=== PATIENT | female | born 1940 | race Caucasian/White ===

== ENCOUNTER 2019-10-11 12:39 | Observation (INO) ==
[2019-10-11] MEDS ORDERED: ONDANSETRON 4 MG/2 ML VIAL IV ONE ×2 (13:20→17:49)
[2019-10-11 13:43] LABS: Basophils % 0.2 % (0.0-0.8); Eosinophils # 0.1 10*3/uL (0.0-0.87); Eosinophils % 0.4 % (0.00-10.9); Hematocrit 37.3 VOL% (35.7-47.0); Hemoglobin 11.5 GM/DL (12.0-16.0); Immature Granulocytes % 0.2 %; Immature Granulocytes Absolute 0.03 #; Lymphocytes # 1.7 10*3/uL (1.4-4.0); Lymphocytes % 13.4 % (21.3-54.2); Mean Corpuscular HGB Conc 30.8 GM/DL (32-36); Mean Corpuscular Volume 91.9 FL (87-102); Mean Platelet Volume 12.6 FL (9.6-12.0); Monocytes % 4.1 % (1.7-12.7); Neutrophils % 81.7 % (38.7-73.9); Platelet Count 222 T/CUMM (130-400); Red Blood Count 4.06 MC/CUMM (3.8-5.5); Red Cell Distribution Width 14.9 % (9.3-17.3); White Blood Count 12.5 T/CUMM (4-12)
[2019-10-11] MEDS: SODIUM CHLORIDE 0.9% 1,000 ML IV STA ×2 (13:45→17:55)
[2019-10-11 13:51] LABS: Albumin 3.1 G/DL (3.4-5.0); Bilirubin,Direct 0.11 MG/DL (0.0-0.20); Bilirubin,Indirect 0.3 MG/DL (0.0-1.0); Bilirubin,Total 0.4 MG/DL (0.2-1.0); Calcium 8.8 MG/DL (8.5-10.1); Osmolality,Calculated 273.4 MOS/KG (273-304); Total Protein 7.7 G/DL (6.4-8.3)
[2019-10-11 14:26] LABS: INR 2.2; PT Patient Result 22.4 SECS (9.8-11.9)
[2019-10-11] MEDS ORDERED: ALBUTEROL 2.5 MG/3 ML NEB RESP TX PRN (16:50)
[2019-10-11] MEDS ORDERED: LINACLOTIDE 145 MCG CAPSULE PO PRN (16:50)
[2019-10-11] MEDS ORDERED: DOCUSATE/SENNA 50-8.6 MG TABLET PO PRN (16:50)
[2019-10-11] MEDS ORDERED: DEXTROSE 50% 25 GM/50 ML VIAL IV PRN (17:02)
[2019-10-11] MEDS ORDERED: DEXTROSE 10% 250 ML BAG IV PRN (17:02)
[2019-10-11] MEDS ORDERED: GLUCAGON 1 MG VIAL IM PRN ×2 (17:02)
[2019-10-11] MEDS: APIXABAN 5 MG TABLET PO SCH (20:32)
[2019-10-11] MEDS: ESCITALOPRAM 10 MG TABLET PO SCH (20:32)
[2019-10-11] MEDS: METOPROLOL TARTRATE 25 MG TABLET PO SCH (20:32)
[2019-10-11] MEDS: BUDESONIDE/FORMOTEROL 160-4.5 INHALER 6 GM INH SCH (20:33)
[2019-10-11] MEDS: INSULIN LISPRO 100 UNIT/ML SUBCUT SCH (20:34)
[2019-10-11] MEDS: oxyCODONE/ACETAMINOPHEN 5-325 MG TABLET PO PRN (20:57)
[2019-10-12] MEDS: ONDANSETRON 4 MG/2 ML VIAL IV PRN ×2 (02:14→17:43)
[2019-10-12] MEDS: oxyCODONE/ACETAMINOPHEN 5-325 MG TABLET PO PRN (02:14)
[2019-10-12 06:18] LABS: Basophils % 0.3 % (0.0-0.8); Eosinophils # 0.1 10*3/uL (0.0-0.87); Eosinophils % 0.4 % (0.00-10.9); Hematocrit 36.5 VOL% (35.7-47.0); Immature Granulocytes % 0.4 %; Immature Granulocytes Absolute 0.06 #; Lymphocytes # 2.1 10*3/uL (1.4-4.0); Mean Corpuscular HGB Conc 30.1 GM/DL (32-36); Mean Corpuscular Volume 94.3 FL (87-102); Mean Platelet Volume 11.9 FL (9.6-12.0); Monocytes % 4.8 % (1.7-12.7); Neutrophils % 79.1 % (38.7-73.9); Platelet Count 211 T/CUMM (130-400); Red Blood Count 3.87 MC/CUMM (3.8-5.5); Red Cell Distribution Width 14.9 % (9.3-17.3)
[2019-10-12 06:33] LABS: INR 1.4; PT Patient Result 14.7 SECS (9.8-11.9)
[2019-10-12 06:38] LABS: Osmolality,Calculated 275.2 MOS/KG (273-304); Risk Ratio 2.89; Thyroid Stimulating Hormone 1.67 uIU/ml (0.358-3.74); VLDL CHOLESTEROL 36.2 MG/DL
[2019-10-12 07:35] LABS: Hypochromasia 1+; Microcytosis Slight
[2019-10-12 07:36] LABS: Platelet Estimate Normal
[2019-10-12] MEDS: LEVOTHYROXINE 75 MCG TABLET PO SCH (07:59)
[2019-10-12] MEDS: INSULIN LISPRO 100 UNIT/ML SUBCUT SCH ×4 (09:06→20:38)
[2019-10-12] MEDS: MAGNESIUM OXIDE 400 MG TABLET PO SCH (09:06)
[2019-10-12] MEDS: POTASSIUM CHLORIDE 20 MEQ/15 ML UDCUP PO SCH (09:06)
[2019-10-12] MEDS: METOPROLOL TARTRATE 25 MG TABLET PO SCH ×2 (09:09→20:37)
[2019-10-12] MEDS: BUDESONIDE/FORMOTEROL 160-4.5 INHALER 6 GM INH SCH ×2 (09:09→20:38)
[2019-10-12] MEDS: predniSONE 10 MG TABLET PO SCH (09:09)
[2019-10-12] MEDS: APIXABAN 5 MG TABLET PO SCH ×2 (10:18→20:37)
[2019-10-12 12:33] LABS: Apearance,Urine Slightly Hazy (Clear); Bacteria,Urine Occasional /HPF (Few); Bilirubin,Urine Negative (Negative); Blood, Urine Large mg/dL (Negative); Glucose,Urine (UA) Negative (Negative); Hyaline Casts,Urine 2 /LPF (0-3); Ketones,Urine Negative (Negative); Mucus,Urine Occasional /LPF (Occasional); Nitrite,Urine Negative (Negative); Protein,Urine 100 MG/DL; RBC,Urine 230 /HPF (0-4); Squamous Epithelial Cell,Urine Occasional /HPF (0-10); Urine Urobilinogen < 2.0 EU/DL (0.2-1.0); WBC,Urine 49 /HPF (0-6)
[2019-10-12 12:37] LABS: Urine Color Yellow (Yellow)
[2019-10-12] MEDS: cephALEXin 500 MG CAPSULE PO SCH ×2 (16:04→20:38)
[2019-10-12] MEDS: LEVOFLOXACIN 500 MG TABLET PO SCH (17:45)
[2019-10-12] MEDS: ESCITALOPRAM 10 MG TABLET PO SCH (20:37)
[2019-10-13] MEDS: oxyCODONE/ACETAMINOPHEN 5-325 MG TABLET PO PRN (00:42)
[2019-10-13] MEDS: LEVOTHYROXINE 75 MCG TABLET PO SCH (05:58)
[2019-10-13 06:36] LABS: Basophils % 0.1 % (0.0-0.8); Eosinophils % 0.2 % (0.00-10.9); Hematocrit 36.7 VOL% (35.7-47.0); Hemoglobin 11.1 GM/DL (12.0-16.0); Immature Granulocytes % 0.4 %; Immature Granulocytes Absolute 0.05 #; Lymphocytes # 2.3 10*3/uL (1.4-4.0); Lymphocytes % 16.8 % (21.3-54.2); Mean Corpuscular HGB Conc 30.2 GM/DL (32-36); Mean Corpuscular Volume 95.1 FL (87-102); Mean Platelet Volume 12.2 FL (9.6-12.0); Monocytes % 5.1 % (1.7-12.7); Neutrophils % 77.4 % (38.7-73.9); Platelet Count 200 T/CUMM (130-400); Red Blood Count 3.86 MC/CUMM (3.8-5.5); Red Cell Distribution Width 14.7 % (9.3-17.3); White Blood Count 13.7 T/CUMM (4-12)
[2019-10-13 06:59] LABS: Calcium 9.2 MG/DL (8.5-10.1); Osmolality,Calculated 278.2 MOS/KG (273-304)
[2019-10-13] MEDS: BUDESONIDE/FORMOTEROL 160-4.5 INHALER 6 GM INH SCH ×2 (08:41→20:28)
[2019-10-13] MEDS: INSULIN LISPRO 100 UNIT/ML SUBCUT SCH ×4 (08:43→20:28)
[2019-10-13] MEDS: POTASSIUM CHLORIDE 20 MEQ/15 ML UDCUP PO SCH (08:45)
[2019-10-13] MEDS: METOPROLOL TARTRATE 25 MG TABLET PO SCH ×2 (08:46→20:29)
[2019-10-13] MEDS: predniSONE 10 MG TABLET PO SCH (08:46)
[2019-10-13] MEDS: APIXABAN 5 MG TABLET PO SCH (08:47)
[2019-10-13] MEDS: cephALEXin 500 MG CAPSULE PO SCH ×4 (08:47→20:29)
[2019-10-13] MEDS: MAGNESIUM OXIDE 400 MG TABLET PO SCH (08:47)
[2019-10-13] MEDS: LEVOFLOXACIN 500 MG TABLET PO SCH (17:34)
[2019-10-13] MEDS: ESCITALOPRAM 10 MG TABLET PO SCH (20:29)
[2019-10-13] MEDS: ROSUVASTATIN 10 MG TABLET PO SCH (20:29)
[2019-10-14] MEDS: oxyCODONE/ACETAMINOPHEN 5-325 MG TABLET PO PRN ×2 (02:37→14:32)
[2019-10-14 04:42] LABS: Basophils % 0.3 % (0.0-0.8); Eosinophils % 0.2 % (0.00-10.9); Hematocrit 37.8 VOL% (35.7-47.0); Hemoglobin 11.4 GM/DL (12.0-16.0); Immature Granulocytes % 0.7 %; Lymphocytes # 2.3 10*3/uL (1.4-4.0); Lymphocytes % 16.8 % (21.3-54.2); Mean Corpuscular HGB Conc 30.2 GM/DL (32-36); Mean Corpuscular Volume 94.5 FL (87-102); Mean Platelet Volume 13.3 FL (9.6-12.0); Monocytes % 5.8 % (1.7-12.7); Neutrophils % 76.2 % (38.7-73.9); Platelet Count 179 T/CUMM (130-400); Red Cell Distribution Width 14.7 % (9.3-17.3); White Blood Count 13.7 T/CUMM (4-12)
[2019-10-14 04:57] LABS: Albumin 3.1 G/DL (3.4-5.0); Bilirubin,Total 0.6 MG/DL (0.2-1.0); Calcium 9.2 MG/DL (8.5-10.1); Osmolality,Calculated 279.4 MOS/KG (273-304); Total Protein 7.3 G/DL (6.4-8.3)
[2019-10-14 04:58] LABS: Hypochromasia 1+; Microcytosis Slight
[2019-10-14 04:59] LABS: Ovalocytes Slight; Platelet Estimate Adequate
[2019-10-14] MEDS: LEVOTHYROXINE 75 MCG TABLET PO SCH (06:30)
[2019-10-14] MEDS: BUDESONIDE/FORMOTEROL 160-4.5 INHALER 6 GM INH SCH ×2 (09:16→20:52)
[2019-10-14] MEDS: INSULIN LISPRO 100 UNIT/ML SUBCUT SCH ×4 (09:17→20:52)
[2019-10-14] MEDS: MAGNESIUM OXIDE 400 MG TABLET PO SCH (09:26)
[2019-10-14] MEDS: cephALEXin 500 MG CAPSULE PO SCH ×3 (09:28→20:51)
[2019-10-14] MEDS: METOPROLOL TARTRATE 25 MG TABLET PO SCH ×2 (09:30→20:51)
[2019-10-14] MEDS: lisinopriL 10 MG TABLET PO SCH (09:30)
[2019-10-14] MEDS: predniSONE 10 MG TABLET PO SCH (09:30)
[2019-10-14] MEDS: ASPIRIN EC 81 MG TABLET PO SCH ×2 (09:30→11:25)
[2019-10-14] MEDS: POTASSIUM CHLORIDE 20 MEQ/15 ML UDCUP PO SCH (09:35)
[2019-10-14] MEDS ORDERED: ENOXAPARIN 100 MG/ML SYRINGE SUBCUT ONE (10:57)
[2019-10-14] MEDS ORDERED: ENOXAPARIN 100 MG/ML SYRINGE SUBCUT SCH (11:00)
[2019-10-14 15:00] LABS: INR 1.2
[2019-10-14] MEDS: LEVALBUTEROL 0.63 MG/3 ML NEB RESP TX SCH (15:23)
[2019-10-14] MEDS: LEVOFLOXACIN 500 MG TABLET PO SCH (16:31)
[2019-10-14] MEDS ORDERED: WARFARIN 5 MG TABLET PO SCH (18:00)
[2019-10-14] MEDS: ESCITALOPRAM 10 MG TABLET PO SCH (20:51)
[2019-10-14] MEDS: ROSUVASTATIN 10 MG TABLET PO SCH (20:51)
[2019-10-14] MEDS: DESITIN 4OZ/NYSTATIN 15 GRAM MIXTURE PASTE TOP SCH (20:52)
[2019-10-15] MEDS: LEVALBUTEROL 0.63 MG/3 ML NEB RESP TX SCH ×4 (01:04→19:27)
[2019-10-15 04:16] LABS: Basophils % 0.2 % (0.0-0.8); Eosinophils # 0.1 10*3/uL (0.0-0.87); Eosinophils % 0.6 % (0.00-10.9); Hematocrit 35.5 VOL% (35.7-47.0); Hemoglobin 10.5 GM/DL (12.0-16.0); Immature Granulocytes % 0.9 %; Immature Granulocytes Absolute 0.09 #; Lymphocytes # 2.5 10*3/uL (1.4-4.0); Lymphocytes % 24.8 % (21.3-54.2); Mean Corpuscular HGB Conc 29.6 GM/DL (32-36); Mean Corpuscular Volume 97.8 FL (87-102); Mean Platelet Volume 12.1 FL (9.6-12.0); Monocytes % 6.7 % (1.7-12.7); NRBC # 0.02 10*3/uL; Neutrophils % 66.8 % (38.7-73.9); Platelet Count 198 T/CUMM (130-400); Red Blood Count 3.63 MC/CUMM (3.8-5.5); Red Cell Distribution Width 14.8 % (9.3-17.3); White Blood Count 10.1 T/CUMM (4-12)
[2019-10-15 04:39] LABS: Albumin 2.8 G/DL (3.4-5.0); Bilirubin,Total 1.2 MG/DL (0.2-1.0); Calcium 8.9 MG/DL (8.5-10.1); Total Protein 7.1 G/DL (6.4-8.3)
[2019-10-15 04:53] LABS: INR 1.1
[2019-10-15] MEDS: LEVOTHYROXINE 75 MCG TABLET PO SCH (06:14)
[2019-10-15] MEDS: INSULIN LISPRO 100 UNIT/ML SUBCUT SCH ×4 (08:08→22:15)
[2019-10-15] MEDS: lisinopriL 10 MG TABLET PO SCH (09:07)
[2019-10-15] MEDS: METOPROLOL TARTRATE 25 MG TABLET PO SCH ×2 (09:07→22:13)
[2019-10-15] MEDS: cephALEXin 500 MG CAPSULE PO SCH ×3 (09:07→22:13)
[2019-10-15] MEDS: DESITIN 4OZ/NYSTATIN 15 GRAM MIXTURE PASTE TOP SCH ×2 (09:08→22:14)
[2019-10-15] MEDS: MAGNESIUM OXIDE 400 MG TABLET PO SCH (09:08)
[2019-10-15] MEDS: POTASSIUM CHLORIDE 20 MEQ/15 ML UDCUP PO SCH (09:08)
[2019-10-15] MEDS: predniSONE 10 MG TABLET PO SCH (09:08)
[2019-10-15] MEDS: ASPIRIN EC 81 MG TABLET PO SCH (09:08)
[2019-10-15] MEDS: BUDESONIDE/FORMOTEROL 160-4.5 INHALER 6 GM INH SCH ×2 (09:08→22:15)
[2019-10-15] MEDS: oxyCODONE/ACETAMINOPHEN 5-325 MG TABLET PO PRN (15:59)
[2019-10-15] MEDS: LEVOFLOXACIN 500 MG TABLET PO SCH (17:53)
[2019-10-15] MEDS ORDERED: SERTRALINE 25 MG TABLET PO SCH (21:00)
[2019-10-15] MEDS: ROSUVASTATIN 10 MG TABLET PO SCH (22:13)
[2019-10-16] MEDS: LEVALBUTEROL 0.63 MG/3 ML NEB RESP TX SCH ×4 (00:13→19:15)
[2019-10-16 04:56] LABS: INR 1.1; PT Patient Result 11.5 SECS (9.8-11.9)
[2019-10-16 04:58] LABS: Basophils % 0.1 % (0.0-0.8); Eosinophils # 0.1 10*3/uL (0.0-0.87); Eosinophils % 1.4 % (0.00-10.9); Hemoglobin 10.7 GM/DL (12.0-16.0); Immature Granulocytes % 0.5 %; Immature Granulocytes Absolute 0.05 #; Lymphocytes # 2.5 10*3/uL (1.4-4.0); Mean Corpuscular HGB Conc 30.6 GM/DL (32-36); Mean Corpuscular Volume 96.4 FL (87-102); Mean Platelet Volume 13.1 FL (9.6-12.0); NRBC # 0.03 10*3/uL; Platelet Count 178 T/CUMM (130-400); Red Blood Count 3.63 MC/CUMM (3.8-5.5); Red Cell Distribution Width 14.8 % (9.3-17.3); White Blood Count 9.9 T/CUMM (4-12)
[2019-10-16 05:05] LABS: Albumin 2.8 G/DL (3.4-5.0); Bilirubin,Total 0.5 MG/DL (0.2-1.0); Calcium 8.9 MG/DL (8.5-10.1); Osmolality,Calculated 278.2 MOS/KG (273-304); Total Protein 6.9 G/DL (6.4-8.3)
[2019-10-16] MEDS: LEVOTHYROXINE 75 MCG TABLET PO SCH (05:51)
[2019-10-16] MEDS: INSULIN LISPRO 100 UNIT/ML SUBCUT SCH ×4 (08:51→22:11)
[2019-10-16] MEDS: cephALEXin 500 MG CAPSULE PO SCH ×3 (09:17→21:03)
[2019-10-16] MEDS: POTASSIUM CHLORIDE 20 MEQ/15 ML UDCUP PO SCH (09:17)
[2019-10-16] MEDS: ASPIRIN EC 81 MG TABLET PO SCH (09:17)
[2019-10-16] MEDS: METOPROLOL TARTRATE 25 MG TABLET PO SCH ×2 (09:17→21:04)
[2019-10-16] MEDS: MAGNESIUM OXIDE 400 MG TABLET PO SCH (09:17)
[2019-10-16] MEDS: BUDESONIDE/FORMOTEROL 160-4.5 INHALER 6 GM INH SCH ×2 (09:18→21:04)
[2019-10-16] MEDS: DESITIN 4OZ/NYSTATIN 15 GRAM MIXTURE PASTE TOP SCH ×2 (09:18→21:03)
[2019-10-16] MEDS: predniSONE 10 MG TABLET PO SCH (09:18)
[2019-10-16] MEDS: ONDANSETRON 4 MG/2 ML VIAL IV PRN (09:19)
[2019-10-16] MEDS ORDERED: FLUCONAZOLE INJ 200 MG in PREMIX 1 EACH IV ONE (12:02)
[2019-10-16] MEDS: TORSEMIDE 20 MG TABLET PO SCH (14:59)
[2019-10-16] MEDS: oxyCODONE/ACETAMINOPHEN 5-325 MG TABLET PO PRN (16:16)
[2019-10-16] MEDS: CLORAZEPATE 3.75 MG TABLET PO PRN (21:02)
[2019-10-16] MEDS: ROSUVASTATIN 10 MG TABLET PO SCH (21:02)
[2019-10-16] MEDS: SERTRALINE 25 MG TABLET PO SCH (21:03)
[2019-10-17] MEDS: LEVALBUTEROL 0.63 MG/3 ML NEB RESP TX SCH ×4 (00:16→20:19)
[2019-10-17 05:31] LABS: Basophils % 0.2 % (0.0-0.8); Eosinophils # 0.2 10*3/uL (0.0-0.87); Eosinophils % 2.1 % (0.00-10.9); Hematocrit 37.6 VOL% (35.7-47.0); Hemoglobin 11.4 GM/DL (12.0-16.0); Immature Granulocytes % 0.3 %; Immature Granulocytes Absolute 0.03 #; Lymphocytes # 2.6 10*3/uL (1.4-4.0); Lymphocytes % 25.6 % (21.3-54.2); Mean Corpuscular HGB Conc 30.3 GM/DL (32-36); Mean Corpuscular Volume 95.2 FL (87-102); Mean Platelet Volume 11.9 FL (9.6-12.0); Neutrophils % 65.8 % (38.7-73.9); Platelet Count 198 T/CUMM (130-400); Red Blood Count 3.95 MC/CUMM (3.8-5.5); Red Cell Distribution Width 15.1 % (9.3-17.3); White Blood Count 10.3 T/CUMM (4-12)
[2019-10-17 05:39] LABS: INR 1.1; PT Patient Result 11.9 SECS (9.8-11.9)
[2019-10-17 05:44] LABS: Albumin 2.9 G/DL (3.4-5.0); Bilirubin,Total 0.4 MG/DL (0.2-1.0); Calcium 8.8 MG/DL (8.5-10.1); Osmolality,Calculated 279.1 MOS/KG (273-304); Total Protein 7.1 G/DL (6.4-8.3)
[2019-10-17] MEDS: LEVOTHYROXINE 75 MCG TABLET PO SCH (05:45)
[2019-10-17 05:53] LABS: Calcium 8.9 MG/DL (8.5-10.1); Osmolality,Calculated 284.7 MOS/KG (273-304)
[2019-10-17] MEDS: INSULIN LISPRO 100 UNIT/ML SUBCUT SCH ×4 (08:45→20:31)
[2019-10-17] MEDS ORDERED: propofoL 200 MG/20 ML VIAL IV ONE (09:00)
[2019-10-17] MEDS ORDERED: LIDOCAINE 2% 5 ML VIAL ONE (09:00)
[2019-10-17] MEDS ORDERED: PHENYLEPHRINE 1 MG/10 ML SYRINGE IV ONE (09:00)
[2019-10-17] MEDS ORDERED: ETOMIDATE 20 MG/10 ML VIAL IV ONE (09:00)
[2019-10-17] MEDS: LACTATED RINGERS 1,000 ML IV SCH (09:27)
[2019-10-17] MEDS: MAGNESIUM OXIDE 400 MG TABLET PO SCH ×2 (09:28→13:26)
[2019-10-17] MEDS: ASPIRIN EC 81 MG TABLET PO SCH (09:28)
[2019-10-17] MEDS: TORSEMIDE 20 MG TABLET PO SCH ×2 (09:28→13:26)
[2019-10-17] MEDS: BUDESONIDE/FORMOTEROL 160-4.5 INHALER 6 GM INH SCH ×2 (09:28→20:33)
[2019-10-17] MEDS: predniSONE 10 MG TABLET PO SCH ×2 (09:28→13:27)
[2019-10-17] MEDS: METOPROLOL TARTRATE 25 MG TABLET PO SCH ×2 (09:28→13:27)
[2019-10-17] MEDS: DESITIN 4OZ/NYSTATIN 15 GRAM MIXTURE PASTE TOP SCH ×2 (09:28→20:33)
[2019-10-17] MEDS: cephALEXin 500 MG CAPSULE PO SCH ×3 (09:28→20:31)
[2019-10-17] MEDS ORDERED: MIDAZOLAM 2 MG/2 ML VIAL ONE (11:52)
[2019-10-17] MEDS: FLUCONAZOLE INJ 100 MG in IV BAG 1 EACH IV SCH (13:27)
[2019-10-17] MEDS: CLORAZEPATE 3.75 MG TABLET PO PRN (17:15)
[2019-10-17] MEDS: SERTRALINE 25 MG TABLET PO SCH (20:31)
[2019-10-17] MEDS: ROSUVASTATIN 10 MG TABLET PO SCH (20:31)
[2019-10-17] MEDS: carvediloL 6.25 MG TABLET PO SCH (20:32)
[2019-10-17] MEDS: oxyCODONE/ACETAMINOPHEN 5-325 MG TABLET PO PRN (20:32)
[2019-10-18] MEDS: LEVOTHYROXINE 75 MCG TABLET PO SCH (05:40)
[2019-10-18 06:13] LABS: Basophils % 0.2 % (0.0-0.8); Eosinophils # 0.1 10*3/uL (0.0-0.87); Eosinophils % 0.9 % (0.00-10.9); Hematocrit 39.4 VOL% (35.7-47.0); Hemoglobin 11.8 GM/DL (12.0-16.0); Immature Granulocytes % 0.4 %; Immature Granulocytes Absolute 0.05 #; Lymphocytes # 2.2 10*3/uL (1.4-4.0); Lymphocytes % 18.4 % (21.3-54.2); Mean Corpuscular HGB Conc 29.9 GM/DL (32-36); Mean Corpuscular Volume 94.9 FL (87-102); Mean Platelet Volume 12.1 FL (9.6-12.0); Monocytes % 4.7 % (1.7-12.7); Neutrophils % 75.4 % (38.7-73.9); Platelet Count 230 T/CUMM (130-400); Red Blood Count 4.15 MC/CUMM (3.8-5.5); Red Cell Distribution Width 15.4 % (9.3-17.3)
[2019-10-18 06:31] LABS: Calcium 9.1 MG/DL (8.5-10.1); Osmolality,Calculated 277.2 MOS/KG (273-304)
[2019-10-18] MEDS: LEVALBUTEROL 0.63 MG/3 ML NEB RESP TX SCH ×3 (06:46→21:06)
[2019-10-18] MEDS: carvediloL 6.25 MG TABLET PO SCH ×2 (09:25→17:33)
[2019-10-18] MEDS: cephALEXin 500 MG CAPSULE PO SCH ×3 (09:25→21:44)
[2019-10-18] MEDS: TORSEMIDE 20 MG TABLET PO SCH (09:25)
[2019-10-18] MEDS: LACTATED RINGERS 1,000 ML IV SCH (09:26)
[2019-10-18] MEDS: lisinopriL 2.5 MG TABLET PO SCH (09:26)
[2019-10-18] MEDS: predniSONE 10 MG TABLET PO SCH (09:26)
[2019-10-18] MEDS: MAGNESIUM OXIDE 400 MG TABLET PO SCH (09:26)
[2019-10-18] MEDS: ASPIRIN EC 81 MG TABLET PO SCH (09:26)
[2019-10-18] MEDS: BUDESONIDE/FORMOTEROL 160-4.5 INHALER 6 GM INH SCH ×2 (09:27→21:56)
[2019-10-18] MEDS: DESITIN 4OZ/NYSTATIN 15 GRAM MIXTURE PASTE TOP SCH ×2 (09:27→21:54)
[2019-10-18] MEDS: INSULIN LISPRO 100 UNIT/ML SUBCUT SCH ×4 (09:27→21:31)
[2019-10-18 10:49] LABS: ABG Base Excess 11.3 MMOL/L (-2.5-2.5); ABG Oxygen Saturation 97.2 % (95-100); ABG PCO2 63.5 MM HG (35-48); ABG PH 7.396 (7.35-7.45); ABG PO2 91.3 MM HG (80-95); ABG TCO2 34.5 MMOL/L (23-27)
[2019-10-18] MEDS: FLUCONAZOLE INJ 100 MG in IV BAG 1 EACH IV SCH (12:35)
[2019-10-18 18:16] LABS: ABG Base Excess 13.5 MMOL/L (-2.5-2.5); ABG HCO3 38.6 MMOL/L (20-26); ABG Oxygen Saturation 89.3 % (95-100); ABG PCO2 50.7 MM HG (35-48); ABG PO2 55.1 MM HG (80-95); ABG TCO2 40.2 MMOL/L (23-27)
[2019-10-18 21:27] LABS: ABG HCO3 37.9 MMOL/L (20-26); ABG Oxygen Saturation 96.7 % (95-100); ABG PCO2 54.7 MM HG (35-48); ABG PH 7.476 (7.35-7.45); ABG PO2 82.7 MM HG (80-95); ABG TCO2 35.2 MMOL/L (23-27)
[2019-10-18] MEDS: oxyCODONE/ACETAMINOPHEN 5-325 MG TABLET PO PRN (21:43)
[2019-10-18] MEDS: ROSUVASTATIN 10 MG TABLET PO SCH (21:44)
[2019-10-18] MEDS: SERTRALINE 25 MG TABLET PO SCH (21:44)
[2019-10-18] MEDS: NYSTATIN 500,000 UNIT/5 ML UDCUP SWISH/SWAL SCH (21:54)
[2019-10-19] MEDS: LEVALBUTEROL 0.63 MG/3 ML NEB RESP TX SCH ×4 (00:56→19:58)
[2019-10-19 03:49] LABS: Basophils % 0.2 % (0.0-0.8); Eosinophils # 0.2 10*3/uL (0.0-0.87); Eosinophils % 1.3 % (0.00-10.9); Hematocrit 39.4 VOL% (35.7-47.0); Hemoglobin 12.1 GM/DL (12.0-16.0); Immature Granulocytes % 0.6 %; Immature Granulocytes Absolute 0.07 #; Lymphocytes # 2.4 10*3/uL (1.4-4.0); Mean Corpuscular HGB Conc 30.7 GM/DL (32-36); Mean Corpuscular Volume 94.5 FL (87-102); Mean Platelet Volume 11.6 FL (9.6-12.0); Monocytes % 5.7 % (1.7-12.7); Neutrophils % 72.2 % (38.7-73.9); Platelet Count 230 T/CUMM (130-400); Red Blood Count 4.17 MC/CUMM (3.8-5.5); Red Cell Distribution Width 15.5 % (9.3-17.3)
[2019-10-19 04:24] LABS: Calcium 9.1 MG/DL (8.5-10.1); Osmolality,Calculated 281.2 MOS/KG (273-304)
[2019-10-19] MEDS: LEVOTHYROXINE 75 MCG TABLET PO SCH (05:39)
[2019-10-19] MEDS: cephALEXin 500 MG CAPSULE PO SCH ×3 (08:27→20:36)
[2019-10-19] MEDS: carvediloL 6.25 MG TABLET PO SCH ×2 (08:28→16:48)
[2019-10-19] MEDS: lisinopriL 2.5 MG TABLET PO SCH (08:28)
[2019-10-19] MEDS: ASPIRIN EC 81 MG TABLET PO SCH (08:28)
[2019-10-19] MEDS: TORSEMIDE 20 MG TABLET PO SCH (08:28)
[2019-10-19] MEDS: predniSONE 10 MG TABLET PO SCH (08:29)
[2019-10-19] MEDS: MAGNESIUM OXIDE 400 MG TABLET PO SCH (08:29)
[2019-10-19] MEDS: BUDESONIDE/FORMOTEROL 160-4.5 INHALER 6 GM INH SCH ×2 (08:30→20:34)
[2019-10-19] MEDS: INSULIN LISPRO 100 UNIT/ML SUBCUT SCH ×4 (09:04→20:34)
[2019-10-19] MEDS: LACTATED RINGERS 1,000 ML IV SCH (09:07)
[2019-10-19] MEDS: NYSTATIN 500,000 UNIT/5 ML UDCUP SWISH/SWAL SCH ×4 (09:27→20:36)
[2019-10-19] MEDS: FLUCONAZOLE INJ 100 MG in IV BAG 1 EACH IV SCH (13:52)
[2019-10-19] MEDS: DESITIN 4OZ/NYSTATIN 15 GRAM MIXTURE PASTE TOP SCH ×2 (14:30→20:36)
[2019-10-19] MEDS: ONDANSETRON 4 MG/2 ML VIAL IV PRN (15:34)
[2019-10-19] MEDS: ROSUVASTATIN 10 MG TABLET PO SCH (20:36)
[2019-10-19] MEDS: SERTRALINE 25 MG TABLET PO SCH (20:36)
[2019-10-19] MEDS: CLORAZEPATE 3.75 MG TABLET PO PRN (21:00)
[2019-10-20] MEDS: LEVALBUTEROL 0.63 MG/3 ML NEB RESP TX SCH ×3 (00:38→13:30)
[2019-10-20 05:41] LABS: Basophils % 0.3 % (0.0-0.8); Eosinophils # 0.2 10*3/uL (0.0-0.87); Hematocrit 38.8 VOL% (35.7-47.0); Immature Granulocytes % 0.5 %; Immature Granulocytes Absolute 0.06 #; Lymphocytes # 2.5 10*3/uL (1.4-4.0); Lymphocytes % 22.5 % (21.3-54.2); Mean Corpuscular HGB Conc 30.9 GM/DL (32-36); Mean Corpuscular Volume 92.8 FL (87-102); Mean Platelet Volume 11.8 FL (9.6-12.0); Monocytes % 6.4 % (1.7-12.7); Neutrophils % 68.3 % (38.7-73.9); Platelet Count 231 T/CUMM (130-400); Red Blood Count 4.18 MC/CUMM (3.8-5.5); Red Cell Distribution Width 15.8 % (9.3-17.3)
[2019-10-20 05:58] LABS: Calcium 8.9 MG/DL (8.5-10.1); Osmolality,Calculated 292.7 MOS/KG (273-304)
[2019-10-20] MEDS: LEVOTHYROXINE 75 MCG TABLET PO SCH (06:14)
[2019-10-20] MEDS ORDERED: NITROGLYCERIN SL 0.4 MG TABLET SL PRN (09:09)
[2019-10-20] MEDS: MAGNESIUM OXIDE 400 MG TABLET PO SCH (09:13)
[2019-10-20] MEDS: predniSONE 10 MG TABLET PO SCH (09:13)
[2019-10-20] MEDS: TORSEMIDE 20 MG TABLET PO SCH (09:13)
[2019-10-20] MEDS: carvediloL 6.25 MG TABLET PO SCH (09:14)
[2019-10-20] MEDS: ASPIRIN EC 81 MG TABLET PO SCH (09:14)
[2019-10-20] MEDS: INSULIN LISPRO 100 UNIT/ML SUBCUT SCH ×2 (09:14→13:33)
[2019-10-20] MEDS: NYSTATIN 500,000 UNIT/5 ML UDCUP SWISH/SWAL SCH ×2 (09:15→14:28)
[2019-10-20] MEDS: LACTATED RINGERS 1,000 ML IV SCH (09:15)
[2019-10-20] MEDS: lisinopriL 2.5 MG TABLET PO SCH (09:17)
[2019-10-20] MEDS: DESITIN 4OZ/NYSTATIN 15 GRAM MIXTURE PASTE TOP SCH (10:06)
[2019-10-20] MEDS: BUDESONIDE/FORMOTEROL 160-4.5 INHALER 6 GM INH SCH (10:06)
[2019-10-20] MEDS: ONDANSETRON 4 MG/2 ML VIAL IV PRN (10:06)
[2019-10-20 12:39] VITALS: BP 100/64
[2019-10-20] MEDS: FLUCONAZOLE INJ 100 MG in IV BAG 1 EACH IV SCH (14:28)
== END 2019-10-20 15:36 | disposition swing bed (61) ==
LOC: EDBD → EDUNIT# → N.ED 12:39 → N.EDINP 12:39 → SUATTDRO 17:02 → N.TELEN 17:30 → SUATTDRO 10-14 14:07
PROVIDERS: ADMIT Hospitalist; ATTEND Internal Medicine Geriatric Medicine